=== PATIENT | female | born 1950 | race Caucasian/White ===

== ENCOUNTER 2018-03-08 12:06 | Day surgery (SDC) | payer MEDICARE, OTHER ==
[~2018-03-08] VITALS: Ht 154.9 cm; Wt 72.6 kg
[~2018-03-08 12:06] MED LIST: CALCIUM600 MG PO; COZAAR25 MG PO; CRESTOR10 MG PO; FISH OIL 1,0001 EAC5 PO; PERCOCET 7.5-31 EACH PO
--- NOTE | 2018-03-08 14:00 | NUR ---
03/08/18 1400 Steff Gonzalez 1350 PT ARRIVED TO PACU DROWSY AND IS REORIENTED TO PACU. RESP EVEN AND UNLABORED ON 3L VIA NC. PT ASLEEP OFF AND ON. PT DENIES NAUSEA AND PAIN.
--- NOTE | 2018-03-09 09:15 | OR ---
[facility] [address], [place] [address] Signed DATE OF OPERATION: 03/08/2018 SURGEON: Sona Smiley MD PREOPERATIVE DIAGNOSIS: Persistent diarrhea since cholecystectomy 4 years ago. POSTOPERATIVE DIAGNOSES: colon, except for hypertrophic appendiceal orifice. PROCEDURES PERFORMED: Total colonoscopy to the cecum with biopsy of the appendiceal orifice, hemostasis assured with hemoclips. ANESTHESIA: Intravenous sedation with fentanyl 150 mcg and Versed 6 mg. INDICATIONS FOR PROCEDURE: A 68-year-old white woman, a patient of Dr. Luis Farmer and known to me from the past. She last underwent colonoscopy seven years ago and four years ago underwent cholecystectomy. She has had diarrhea from [id number] since her cholecystectomy, was not as profound or persistent at sometimes, but it does bother her. She was empirically treated with Questran, which did improve her symptoms, but she does not like the texture of it, it makes her feel "sick." She is here today to undergo colonoscopy to assess for a pathologic finding to account for diarrhea, understanding well the risk of bleeding, infection, and perforation. FINDINGS: The prep was excellent. Complete colonoscopy was undertaken to the cecum without question. There was hypertrophy of the mucosa of the anal papilla, not a polyp per se, but biopsies were obtained nevertheless. As there was persistent oozing of blood, hemoclips were applied with good effect. The remaining colon showed no sign of polyps or colitis including the rectum. No sign of diverticular formation that I could tell today. DESCRIPTION OF PROCEDURE: The patient was brought to the endoscopy suite and placed in the lateral decubitus position, given intravenous sedation to the point of slurred speech and nystagmus. Digital rectal examination was normal. Full cardiopulmonary monitoring was maintained. Electronically Signed By: SONA SMILEY MD 03/09/18 0915 PATIENT NAME: MANOHAR DOMINGUEZ OPERATIVE REPORT DATE OF : 52 REPORT #: [id number] PHYSICIAN: SONA SMILEY MD PCP: LUIS FARMER MD REPORT IS CONFIDENTIAL AND NOT TO BE RELEASED WITHOUT AUTHORIZATION [facility] [address], [place] [address] Signed Digital rectal examination was found to be normal. An Olympus video colonoscope was passed in the rectum and manipulated throughout the colon. Passage to the sigmoid was rather long and laborious, although I did not see any wide-mouth diverticula. I suspect there were inapparent diverticula due to deep sulci of the sigmoid mucosa. Once the scope was beyond the sigmoid, passage was rather straightforward ultimately to the cecum without question. The ileocecal valve and appendiceal orifice were visualized. The appendiceal orifice had what appeared initially to be possibly prolapsing mucosa. There was no strict adenoma or polyp with hypertrophied mucosa. A biopsy forceps was used to see if the mucosa could be reduced or could not. On that basis, two generous biopsies were taken of that area. Hemoclips were applied to assure hemostasis given oozing of blood. This was effective. The scope was then withdrawn from that point and examination throughout undertaken showing no sign of abnormality. Retroflexed view of the rectum was normal. Scope was removed. The patient was taken to recovery room in good condition. 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 We will initiate colestipol tablets instead and see if that is beneficial to her. If her diarrhea persists, she will let me know. We will check pathology report of her appendiceal orifice biopsy as well. Sona Smiley MD /HILDAL /[id number] cc: Luis Farmer MD Copies: LUIS FARMER MD ~ Electronically Signed By: SONA SMILEY MD 03/09/18 0915 PATIENT NAME: MANOHAR DOMINGUEZ OPERATIVE REPORT DATE OF : 52 REPORT #: [id number] PHYSICIAN: SONA SMILEY MD PCP: LUIS FARMER MD REPORT IS CONFIDENTIAL AND NOT TO BE RELEASED WITHOUT AUTHORIZATION
== END 2018-03-08 14:35 | disposition home or self-care (01) ==
LOC: OPS 12:06 → DS 12:06 → OPS 13:00
PROVIDERS: Surgery
PROC: 0DBE8ZX Excision of Large Intestine, Via Natural or Artificial Opening Endoscopic, Diagnostic (ICD-10-PCS; principal; 2018-03-08 13:00)
DX: K62.89 Other specified diseases of anus and rectum (principal); K52.9 Noninfective gastroenteritis and colitis, unspecified; I10 Essential (primary) hypertension; Z88.0 Allergy status to penicillin; Z98.890 Other specified postprocedural states
CPT/HCPCS: 88305; 88341; 88342; 88360; 88364; 88365; 99153; G0500; J2250; J3010; J7120

== ENCOUNTER 2023-05-19 08:30 | Emergency (ER) | payer MEDICARE, BC ==
[~2023-05-19] VITALS: Ht 154.9 cm; Wt 71.4 kg
[2023-05-19 11:43] VITALS: BP 115/70
== END 2023-05-19 11:45 | disposition home or self-care (01) ==
LOC: ED 08:30
DX: S63.602A Unspecified sprain of left thumb, initial encounter (principal); M18.12 Unilateral primary osteoarthritis of first carpometacarpal joint, left hand; W01.0XXA Fall on same level from slipping, tripping and stumbling without subsequent striking against object, initial encounter; Z88.0 Allergy status to penicillin; Z88.2 Allergy status to sulfonamides; Z79.899 Other long term (current) drug therapy
CPT/HCPCS: 73100; 73110; 99283-25